=== PATIENT | male | born 1975 | race Two or more races ===

== ENCOUNTER 2020-05-07 23:16 | Emergency (ER) | payer MEDICAID, OTHER ==
[~2020-05-07] VITALS: Ht 175.3 cm; Wt 72.6 kg
[2020-05-07 23:17] VITALS: BP 136/72
--- NOTE | 2020-05-07 23:20 | NUR ---
DR. RAY AT BEDSIDE FOR MSE
--- NOTE | 2020-05-07 23:28 | NUR ---
Patient discharged to pd in stable condition. Written and verbal after care instructions given. Patient verbalizes understanding of instruction.pt. ambulatory with a steady gait
== END 2020-05-07 23:28 | disposition home or self-care (01) ==
LOC: ER 23:16
DX: R06.02 Shortness of breath (principal); F20.9 Schizophrenia, unspecified; I10 Essential (primary) hypertension; E11.9 Type 2 diabetes mellitus without complications; Z02.89 Encounter for other administrative examinations